=== PATIENT | female | born 1965 | race Caucasian/White ===

== ENCOUNTER 2024-11-22 14:03 | Outpatient (AMB) | payer BC, MEDICAID, SELFPAY ==
--- NOTE | 2024-11-22 14:07 | A.OFFVIS_ITS ---
Vital Signs 11/22/24 14:13 Height 5 ft 2 in Weight 120 lb BMI 21.9 BP 146/69 H Blood Pressure Location Lt brachial Position Sitting Pulse 76 Pulse Source Pulse Oximeter Pulse Oximetry (%) 100 Oxygen Delivery Method Room Air Intake Visit Reasons: LUMBAR SPONDYLOSIS Intake Note: Pain today 06/21 Distribution Sales Manager Required: No Accompanied by: Other Relationship Allergies No Known Allergies Allergy (Verified 11/22/24 14:15) HPI Comments Details: The patient is a 59-year-old female presenting with chronic low back pain. The pain has persisted for over three months, worsening with walking or standing, and may have been triggered by a yoga-related incident. She has been under the care of Dr. Duran, receiving a piriformis injection and engaging in physical therapy at [facility] in [place] for lower back and and right hip. The pain extends to the right lateral leg, occasionally causing nerve pain and muscle spasms, and is somewhat alleviated by biking and rollerblading, though walking remains problematic. A lumbar x-ray indicated mild arthritis in the facet joints, with tenderness noted at L4-L5 and the sacroiliac joints. The patient denies bowel or bladder dysfunction and uses ibuprofen BID-TID prn daily for pain relief. She has a history of fibromyalgia-like symptoms following a period of significant stress and family loss, leading to muscle spasms and back tightness. Currently, she is considering transitioning from cyclobenzaprine to tizanidine to better manage her symptoms. Patient is currently receiving counseling for depression and reports Wellbutrin and duloxetine have been partially helpful. - Onset: Over three months ago, possibly related to yoga. - Quality: Chronic, with nerve pain, pinching, cramping, crushing, dull, sore, hurting, aching, heavy, spasming, tiring. - Location: Low back, radiating to the hip and lateral leg. - Exacerbating factors: Walking, standing, increased pain after a lot of activity - Relieving factors: Biking, rollerblading. - Interference: Affects walking and standing activities. - Pain (1-10): With activities 7/10, average 5/10, early am upon waking up 1/10 - Affect: Pain impacts daily activities and causes frustration due to activity limitations. - Analgesia: Currently using ibuprofen three times daily; considering tizanidine for muscle relaxation. - Adverse Effects: Potential drowsiness from tizanidine, advised to monitor blood pressure. - Activities of Daily Living: Pain affects walking and standing; patient remains active with biking and rollerblading. - Aberrant Drug Related Behaviors: None reported. 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 - Neurological: Denies numbness or tingling down the legs. - Genitourinary: Denies bowel or bladder dysfunction, weakness, foot drop, or saddle anesthesia. All systems reviewed & are unremarkable except as noted in HPI and below Physical Exam Vital Signs: Last Vital Signs Pulse 76 11/22/24 14:13 BP 146/69 H 11/22/24 14:13 Pulse Ox 100 11/22/24 14:13 Oxygen Delivery Method Room Air 11/22/24 14:13 BMI result Body Mass Index 21.9 General: Appears afebrile. Alert and oriented. Mood and affect appropriate. Follows and participates in conversation appropriately. Respiratory effort is unlabored. No cough. Able to transition from sit to stand unassisted. Ambulates with bilaterally normal heel strike and toe off. General: Yes no CVA tenderness Back/Spine/Pelvis Other: Patient is able to walk and stand on heels and tip toes with no difficulties demonstrating good motor tone. No limping. Can flex forward to 80-85 degrees and extend to 5-10 degrees before experiencing lumbar pain. Demonstrates 5/5 strength of quadriceps bilaterally as well as flexion/dorsiflexion of bilateral feet against resistance. 2+ pedal pulses bilaterally. Straight leg rise with dorsiflexion negative bilaterally. +2 patellar and achilles reflexes ihsan aterally. Facet loading test positive bilaterally. Myrtle sign, Cortez?s, Gaenslen, Pelvic compression and Stinchfield tests are positive on the right>left. Mild TTP to right piriformis muscle. Mild groin pain with right I/E hip rotations. Valsalva maneuver is negative. Mild multiple widespread TTPs 16/16 bilaterally, including upper and lower extremities.?? Back: no CVA tenderness Cervical Spine: cervical ROM normal, cervical muscular tenderness and No Cervical spine tenderness Thoracic/Lumbar Spine: thoracic and lumbar spine normal to inspection, No Thoracic/lumbar spine scar(s), Lasegue's sign negative, straight leg raise negative bilaterally, pain with thoraco-lumbar ROM, paraspinal muscle tenderness on the right greater than left, No thoracic spinal tenderness and lumbar spinal tenderness at L4 and at L5 Pelvis: buttock tenderness on the right Sacroiliac joints: bilaterally tender to palpation Results Reviewed Results Reviewed: Ordering Physician: DO Avery Skaggs Date of Service: 10/20/24 Procedure(s): XR lumbar spine 2-3V Reason for Exam: right sided sciatica HISTORY: right sided sciatica -written- TECHNIQUE: 3 views of the lumbar spine were acquired. COMPARISON: None. FINDINGS: Vertebrae: There are 5 non rib-bearing vertebral bodies. There is normal mineralization, alignment and stature with no evidence of a fracture. Disc Spaces: Disc space height is preserved. Facet Joints: Mild sclerosis of the lower lumbar facet joints. Paravertebral Tissues: No acute abnormality. IMPRESSION: Mild lower lumbar facet arthrosis. Assessment & Plan Assessment & Plan (1) Fibromyalgia: Code(s): M79.7 - Fibromyalgia Category: Medical (2) Muscle spasm of back: Code(s): M62.830 - Muscle spasm of back Category: Medical (3) Lumbar spondylosis: Code(s): M47.816 - Spondylosis without myelopathy or radiculopathy, lumbar region Category: Medical (4) Sacroiliac joint pain: Code(s): M53.3 - Sacrococcygeal disorders, not elsewhere classified Category: Medical Plan The patient will maintain physical therapy to manage chronic low back pain and sacroiliac joint dysfunction. Pending insurance approval, a therapeutic steroid injection in the right sacroiliac joint with local and fluoroscopy is planned to achieve extended pain relief. Expectations, risks and benefits were reviewed. Patient is aware she will be contacted to schedule this procedure. The patient is advised to switch from cyclobenzaprine to tizanidine, starting with a low dose to evaluate its impact on fibromyalgia symptoms. Side effects and precautions were discussed with patient. She is encouraged to continue low-impact activities while minimizing activities that increase pain. All questions and concerns have been answered and patient agreed with the plan. Follow-up to assess the treatment's effectiveness and make necessary adjustments and sooner as needed. Patient was informed and verbally consented to the use of an ambient scribe for clinic note documentation during this visit. Medications: New tizanidine 4 mg PO BID PRN 30 tabs 0RF muscle spasticity M62.830 - Muscle spasm of back, M79.7 - Fibromyalgia Coding Level of Care Code New Pt Level 4 (31355) Diagnoses Fibromyalgia M79.7 Muscle spasm of back M62.830 Lumbar spondylosis M47.816 Sacroiliac joint pain M53.3
[2024-11-22 14:13] VITALS: BP 146/69; PULSE 76; O2SAT 100; BMI 21.9
--- OUTSIDE RECORDS SUMMARY | 2024-11-22 15:26 | XMS_ITS | Clinical Summary ---
Author Organization [facility] Address [address] [place] [address] Care Team Providers Care Washer Operator Name Role Phone Pcp, No Primary Care Provider Unavailabl e Allergies No known active allergies Medications moxifloxacin (VIGAMOX) 0.5 % ophthalmic solutionIndicat ions:Encounter for screening for COVID-19 Administer 1 drop to the right eye 3 (three) times a day. 3 mL 3 Active amoxicillin-cla vulanate (AUGMENTIN) 875-125 MG per tabletIndicatio ns:Encounter for screening for COVID-19 Take 1 tablet by mouth 2 (two) times a day. 20 tablet 3 Active Active Problems No known active problems Social History Tobacco Use Types Packs/Day Years Used Date Smoking Tobacco: Never Assessed Comments Unknown Sex and Gender Information Value Date Recorded Sex Assigned at Female 05/17/2022 11:21 AM EST Legal Sex Female 11:19 AM EST Gender Identity Female 05/17/2022 11:21 AM EST Sexual Orientation Heterosexual (straight) 05/17 11:21 AM EST Last Filed Vital Signs Vital Sign Reading Time Taken Comments Blood Pressure 164/99 05/17/2022 11:59 AM EST Pulse 81 05/17/2022 11:59 AM EST Temperature 36.7 C (98 F) 05/17/2022 11:59 AM EST Respiratory Rate 16 05/17/2022 11:59 AM EST Oxygen Saturation 99% 05/17/2022 11:59 AM EST Inhaled Oxygen Concentration - - Weight 54.4 kg (120 lb) 05/17/2022 11:59 AM EST Height 157.5 cm (5' 2 ) 05/17/2022 11:59 AM EST Body Mass Index 21.95 05/17/2022 11:59 AM EST Plan of Treatment Health Maintenance Due Date Last Done Comments Hepatitis C Virus Screening 1967 HIV Screening 02/27/1980 DTaP/Tdap/Td Vaccines (1 - Tdap) 1986 Hepatitis B Vaccines (1 of 3 - 19+ 3-dose series) 02/09 Pap Smear (Ages 21-65) 02/27/1988 Mammogram 2007 Colonoscopy 02/27/2012 Pneumococcal Vaccines 50+ (1 of 1 - PCV) 2017 Zoster (Shingles) Vaccine (1 of 2) 2017 COVID-19 Vaccine (1 - 2023- season) 2024 Influenza Vaccine 12/10/2024 Care Teams Washer Operator Relationship Specialty Start Date End Date Pcp, [address] [place] [address] PCP - General 05/17/22
--- OUTSIDE RECORDS SUMMARY | 2024-11-22 15:26 | XMS_ITS | Patient Health Record ---
Author Organization [facility] [place] [address] Care Team Providers Care Insurance Agency Manager Name Role Phone Out of Area, Provider Primary Care Provider Unav ailable Yaz Gordon Unavailable [phone] Results Component Value Reference Range Notes Surgical Pathology Reviewed date:01/05/2024 02:40:38 PM Interpretation: Performing Lab: Notes/Report: Final Diagnosis: Gallbladder, Cholecystectomy: Chronic cholecystitis and cholelithiasis. Gross Description: Received in formalin labeled Mani Bonilla and designated gallbladder consis ts of an intact, grijalva-brown gallbladder specimen that measures 7.3 cm in l ength x 1.6 cm in diameter. The serosal aspect is grijalva-brown and withou t perforation. It is opened to reveal multiple uniform yellow cholesterol calculi that range in measurement from 0.2 to 0.3 cm in greatest dimension. The mucosal is dark green and velvety and without any mucosal based lesion s. The wall measures 0.4 cm in greatest dimension. Packing Clerk secti ons are submitted in one cassette. [RP] [id number] CPT Codes: 94136a7 Source: Surgical Histology Signed out by: Otto Condon MD - 01/05/2024 Site Note: COWEN: Technical [facility] by [facility] - A [facility], [address] [place] [address]. [address] [facility], [place] [id number], , Katy De La Torre MD, Braille And Talking Books Clerk. Specimen Grossing and Professional services are provided [facility], [address] [place] [address], [id number], , Sony Mott DO, Braille And Talking Books Clerk. Reason For Referral No Information Encounters Encounter Location Date Provider Diagnosis [facility] [address] [place] [address] 01/19/2024 Yaz Gordon Postprocedural state Z98.890 [facility] [address] [place] [address] 01/06/2024 Yaz Gordon Assessments Encounter Date Diagnosis (ICD Code) Assessment Notes Treatment Notes Treatment Clinical Notes Section Notes 01/19/2024 Postprocedural state (ICD-10 - Z98.890) 58-year-old female status post laparoscopic cholecystectomy for chronic cholecystitis on 4Doing well after surgeryPatient already tolerating a little bit of fatty foods, advised her that unless she has any diarrhea or abdominal pain with the fatty foods that she is welcome to keep eating themBack to workBenign pathologyFollow-up as needed Plan Of Treatment No Information Insurance Providers Payer Name Payer Address Payer Phone Subscriber Number Group Number Insured Name Patient Relationship to Insured Coverage Start Date Coverage End Date PATRICIA HOLM [address] [place] [address] [id number] MANI BONILLA Self - patient is the insured
== END 2024-11-22 14:42 | disposition home or self-care (01) ==
LOC: HO.PMC 14:04
PROVIDERS: Visit Provider Nurse Practitioner Family
DX: M79.7 Fibromyalgia (principal); M62.830 Muscle spasm of back; M47.816 Spondylosis without myelopathy or radiculopathy, lumbar region; M53.3 Sacrococcygeal disorders, not elsewhere classified
CPT/HCPCS: 99204

== ENCOUNTER 2024-12-03 14:42 | Outpatient (REF) | payer BC, MEDICAID, SELFPAY ==
--- OUTSIDE RECORDS SUMMARY | 2024-12-03 14:46 | XMS_ITS | Clinical Summary ---
Author Organization [facility] Address [address] [place] [address] Care Team Providers Care Quality Review Specialist Name Role Phone Pcp, No Primary Care [...] season) 2024 Influenza Vaccine 12/10/2024 Care Teams Quality Review Specialist Relationship Specialty Start Date End Date Pcp, [address] [place] [address] PCP - General 05/17/22
--- OUTSIDE RECORDS SUMMARY | 2024-12-03 14:46 | XMS_ITS | Clinical Summary ---
Author Organization [facility] Address [address] [place] [address] Care Team Providers Care Body Corporate Manager Name Role Phone Renea Hatch CNM Primary Care Provider Unav ailable Social History Tobacco Use Types Packs/Day Years Used Date Smoking Tobacco: Never Assessed Comments Unknown Sex and Gender Information Value Date Recorded Sex Assigned at Not on file Legal Sex Female 9:24 EDT Gender Identity Not on file Sexual Orientation Not on file Plan of Treatment Health Maintenance Due Date Last Done Comments Hepatitis C Screen 1967 Hepatitis B Vaccine (1 of 3 - 19+ 3-dose series) 02/26 COVID-19 Vaccine ( season) 2024 Care Teams Body Corporate Manager Relationship Specialty Start Date End Date Renea Hatch CNM [address] [place] [address] PCP - General 09/30/13
--- OUTSIDE RECORDS SUMMARY | 2024-12-03 14:46 | XMS_ITS | Clinical Summary ---
Author Organization [facility] Address [address] [facility] [place] [address] Care Team Providers Care Gift Shop Clerk Name Role Phone Unavailable Primary Care Provider Unavailabl e Family History Medical History Relation Comments Ovarian Cancer Maternal Aunt no genetic testi ng Ovarian Cancer Maternal Cousin 1 ? genetic test ing Other Maternal Cousin 2 CHEK2+ Prostate Cancer Maternal Uncle Breast Cancer Mother Relation Status Comments Father Maternal Aunt Maternal Cousin 1 Alive Maternal Cousin 2 Alive Maternal Grandfather Maternal Grandmother Maternal Uncle Alive Mother Paternal Grandfather Paternal Grandmother Sister Alive Social History Tobacco Use Types Packs/Day Years Used Date Smoking Tobacco: Never Assessed Comments Unknown Sex and Gender Information Value Date Recorded Sex Assigned at Not on file Legal Sex Female 6:52 AM EDT Gender Identity Not on file Sexual Orientation Not on file Plan of Treatment Health Maintenance Due Date Last Done Comments CT Colonography 1967 Colonoscopy 1967 Colorectal Cancer Screening 1967 FIT DNA 1967 FIT 1967 Sigmoidoscopy (10 year) with FIT yearly 1967 Sigmoidoscopy 1967 HIV screen 1985 Hepatitis C Screening 1985 Hepatitis B vaccine (0-59 yrs) and Risk (1) 1986 Tetanus/Diphtheria/Pertussis Vaccines (1 - Tdap) 02/26 HPV test 1997 PAP Smear 1997 Breast Cancer Share Decision Needed 2007 Breast Cancer screening 2007 Pneumoccocal Vaccine: 50+ (1 of 1 - PCV) 2017 Zoster vaccine (1 of 2) 2017 Advance Directive 2022 Covid-19 Vaccine (1 - 2023-25 season) 2024 Influenza (Flu) vaccine (1 o f 1 - Influenza standard series) 01/10/2025 Insurance [place]ID [place]
--- OUTSIDE RECORDS SUMMARY | 2024-12-03 14:46 | XMS_ITS | Patient Health Record ---
Author Organization [facility] [place] [address] Care Team Providers Care Slps Name Role Phone Out of Area, Provider Primary Care Provider Unav ailable Yaz Gordon Unavailable [phone] Results Component Value Reference Range Notes Surgical [...] wall measures 0.4 cm in greatest dimension. Scrum Project Manager secti ons are submitted in one cassette. [RP] [id number] CPT Codes: 99639z7 Source: Surgical Histology Signed out by: Otto Condon MD - 01/05/2024 Site Note: BROKEN BOW: Technical Preparation [facility]formed by [facility] - A [facility], [address] [place] [address]. Suite [facility], [place] [id number], , Katy De La Torre MD, Surgical Supply Assistant. Specimen Grossing and Professional services are provided [facility], [address] [place] [address], [id number], , Sony Mott DO, Surgical Supply Assistant. Reason For Referral No Information Encounters Encounter Location Date Provider Diagnosis [facility] [address] [place] [address] 01/19/2024 Yaz Gordon Postprocedural state Z98.890 [facility] [address] [place] [address] 01/06/2024 Yaz Gordon Assessments Encounter Date Diagnosis [...] End Date PATRICIA HOLM [address] [place] [address] [id number] MANI BONILLA Self - patient is the insured
== END 2024-12-03 14:43 | disposition home or self-care (01) ==
LOC: CF 14:42
DX: Z13.89 Encounter for screening for other disorder (principal)

== ENCOUNTER 2024-12-23 07:32 | Outpatient (REF) | payer BC, MEDICAID, SELFPAY ==
--- NOTE | ~2024-12-23 | FL_ITS ---
EXAMINATION: FL GUIDANCE ONLY HISTORY: M53.3 - Sacrococcygeal disorders, not elsewhere classified COMPARISON: None available. TECHNIQUE: Fluoroscopy time: 0.1 minutes. Cumulative Dose: 1.57 mGy. DAP: 0.184 mGym2 Images: 3. FINDINGS: Fluoroscopic spot films of the pelvis demonstrate a needle in the region of the right sacroiliac joint. FL/FL guidance in treatment room IMPRESSION: Fluoroscopy during procedure. Please see procedure report for additional information. Electronically signed by: Jaguar Rashid MD 12/23/2024 01:44 PM EDT
--- OUTSIDE RECORDS SUMMARY | 2024-12-23 07:34 | XMS_ITS | Patient Health Record ---
Author Organization [facility] Address [place] [address] Care Team Providers Care Wedding Cake Designer Name Role Phone Out of Area, Provider Primary Care Provider Unav ailable Yaz Gordon Unavailable [phone] Results Component Value Reference Range Notes Surgical [...] wall measures 0.4 cm in greatest dimension. User Experience Analyst secti ons are submitted in one cassette. [RP] [id number] CPT Codes: 90589j6 Source: Surgical Histology Signed out by: Otto Condon MD - 01/05/2024 Site Note: SEKIU: Technical Preparation Performed by [facility] - A [facility], [address] [place] [address]. Suite [facility], [place] [id number], , Katy De La Torre MD, Paint Stripper. Specimen Grossing and Professional services are provided [facility], [address] [place] [address], [id number], , Sony Mott DO, Paint Stripper. Reason For Referral No Information Encounters Encounter Location Date Provider Diagnosis [facility] [address] [place] [address] [place] [address] 01/19/2024 Yaz Gordon Postprocedural state Z98.890 [facility] - [address] [place] [address] 01/06/2024 Yaz Gordon Assessments Encounter Date Diagnosis [...] Insured Coverage Start Date Coverage End Date PATRICAI HOLM [address] [place] [address] [id number] MANI BONILLA Self - patient is the insured
--- OUTSIDE RECORDS SUMMARY | 2024-12-23 07:34 | XMS_ITS | Clinical Summary ---
Author Organization [facility] Address [address] [place] [address] Care Team Providers Care Rail Filler Name Role Phone Pcp, No Primary Care [...] season) 2024 Influenza Vaccine 12/10/2024 Care Teams Rail Filler Relationship Specialty Start Date End Date Pcp, [address] [place] [address] PCP - General 05/17/22
--- OUTSIDE RECORDS SUMMARY | 2024-12-23 07:34 | XMS_ITS | Clinical Summary ---
Author Organization [facility] Address [address] [place] [address] Care Team Providers Care Process Treater Name Role Phone Renea Hatch CNM Primary Care Provider Unav ailable Encounters Date Type Department Care Team Description 12/22/2024 Lab Requisition [facility] Pathology & Laboratory Medicine - [facility] [address] [place] [address] Outr Resulting Lab, Provider from Last 3 Months Social History Tobacco Use Types Packs/Day Years [...] COVID-19 Vaccine ( season) 2024 Care Teams Process Treater Relationship Specialty Start Date End Date Renea Hatch CNM [address] [place] [phone] PCP - General 09/30/13
--- OUTSIDE RECORDS SUMMARY | 2024-12-23 07:34 | XMS_ITS | Clinical Summary ---
Author Organization [facility] Address [address] [facility] [place] [place] [address] Care Team Providers Care Hands Assembler Name Role Phone Unavailable Primary Care Provider [...] Advance Directive 2022 Covid-19 Vaccine (1 - season) 2024 Influenza (Flu) vaccine (1 o f 1 - Influenza standard series) 01/10/2025 Insurance MEDICAID [place]
== END 2024-12-23 07:33 | disposition home or self-care (01) ==
LOC: CF 07:32
PROVIDERS: Visit Provider Internal Medicine
DX: M53.3 Sacrococcygeal disorders, not elsewhere classified (principal)
CPT/HCPCS: 27096; J2003; J2795; J3301

== ENCOUNTER 2024-12-23 11:23 | Outpatient (AMB) | payer BC, MEDICAID, SELFPAY ==
[2024-12-23 11:25] VITALS: BP 100/83; PULSE 83; RESP 16; O2SAT 100; BMI 21.9
--- NOTE | 2024-12-23 11:25 | A.OFFVIS_ITS ---
Vital Signs 12/23/24 11:25 12/23/24 12:09 Height 5 ft 2 in Weight 120 lb BMI 21.9 BP 100/83 167/75 H Blood Pressure Location Lt brachial Lt brachial Position Sitting Sitting Respiration 16 16 Pulse 83 80 Pulse Source Pulse Oximeter Pulse Oximeter Pulse Oximetry (%) 100 100 Oxygen Delivery Method Room Air Room Air Intake Visit Reasons: right theraputic SIJ injection Allergies No Known Allergies Allergy (Verified 11/22/24 14:15) HPI HPI right theraputic SIJ injection: Details: Patient presents for scheduled procedure. Denies any recent cough, cold, infection, fever or other significant changes in medical history since last office visit. 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 Immediately prior to starting the procedure, a time-out safety check was conducted. The patient's identification, procedure name, procedure site, and procedure laterality were confirmed with the patient. ? Patient was placed prone on the fluoroscopy table and the lumbosacral area was prepped using ChloraPrep and draped with sterile draped in standard fashion. The C-arm was rotated in a contralateral oblique fashion until the medial border of the iliac crest no longer foreshadowed the posterior sacroiliac joint line. The skin and subcutaneous tissue was anesthetized using 1 mL of 0.75% plain lidocaine with 1.5-inch 25-gauge needle in the middle region of the joint line.? A 3.5-inch 22-gauge spinal needle with small bend on the tip was slowly advanced towards the joint line, coaxial to the x-ray beam. Once bony content was obtained, the needle was easily slid into the intra-articular space.? Intra- articular needle position was confirmed using lateral fluoroscopy.? A total volume of 2.5mL of solution containing 40 mg trimcinilone and rest 0.5% of ropivacaine was injected intra-articularly. The stylet was reinserted and needle was removed. The patient tolerated the procedure well. Patient denied any lower extremity weakness or numbness. Patient was observed for 30 min and was discharged after fulfilling the standard discharge criteria. Coding Procedure code (CPT) selection complete Assessment & Plan Assessment & Plan (1) Sacroiliac joint pain: Code(s): M53.3 - Sacrococcygeal disorders, not elsewhere classified Category: Medical Plan Patient is status post right therapeutic SI joint injection. Patient tolerated procedure well and was discharged home in stable condition with discharge instructions. All questions were answered. We will follow-up via telephone or in clinic to assess response to therapy. A follow-up appointment was made during today's visit. Orders: Orders FL guidance in treatment room Today M53.3 - Sacrococcygeal disorders, not elsewhere classified AMB Joint Injection/Aspiration Today M53.3 - Sacrococcygeal disorders, not elsewhere classified Coding Level of Care Code Procedure Only Diagnoses Sacroiliac joint pain M53.3
[2024-12-23 12:09] VITALS: BP 167/75; PULSE 80; RESP 16; O2SAT 100
== END 2024-12-23 12:10 | disposition home or self-care (01) ==
LOC: HO.PMCPRC 11:23
PROVIDERS: Visit Provider Internal Medicine
DX: M53.3 Sacrococcygeal disorders, not elsewhere classified (principal)
CPT/HCPCS: 27096

== ENCOUNTER 2025-01-06 10:17 | Outpatient (AMB) | payer BC, MEDICAID, SELFPAY ==
--- NOTE | 2025-01-06 10:19 | MHC.OFFVIS ---
Vital Signs 01/06/25 10:23 Height 5 ft 2 in Weight 122 lb BMI 22.3 BP 192/83 H Blood Pressure Location Lt brachial Position Sitting Pulse 80 Pulse Source Pulse Oximeter Pulse Oximetry (%) 97 Oxygen Delivery Method Room Air Intake Visit Reasons: s/p right theraputic SIJ inj Intake Note: Pain today 07/19 Disability Insurance Hearing Officer Required: No Accompanied by: Spouse Allergies No Known Allergies Allergy (Verified 01/06/25 10:23) HPI Comments Details: The patient is a 59-year-old female presenting with chronic pain and fibromyalgia symptoms. She reports a history of chronic pain that began years ago following an injury, which has now resurfaced and is associated with anxiety. The pain is primarily located in the back and moves around, with a history of fibromyalgia that had previously resolved for six to seven years. The patient underwent a right sacroiliac joint injection with steroids on December 23, 2024, which provided therapeutic relief. However, she continues to experience pain in the right buttock, especially during exercise, with a pain level reaching up to 5-7/10. She describes the pain as spasms in the middle of the buttock, which improve with rest. The patient has a history of mild disc degeneration and mild arthritis in the lower back, as confirmed by MRI imaging. She reports no spinal stenosis and has been informed that the discs are only slightly degenerated, which is considered normal for her age. The patient has been diagnosed with anxiety, which she associates with family-related stressors rather than public or situational anxiety. She has been managing her anxiety with counseling and has started on a low dose of duloxetine (Cymbalta) for fibromyalgia and anxiety management. She has a history of using gabapentin in the past for similar symptoms. - Onset: Chronic pain following an injury years ago, recently resurfaced. - Quality: Described as spasms, primarily in the middle of the back and right buttock. - Location: Back, with radiation to the right buttock. - Exacerbating factors: Exercise increases pain, especially in the right buttock. - Relieving factors: Rest alleviates the pain. - Interference: Pain limits walking distance and physical activity. - Affect: Anxiety related to family stressors impacts mood. - Analgesia: Current pain level is 2 out of 10 at rest, 5-7/10 with activities, with a goal to manage pain effectively. - Adverse Effects: No adverse effects from current medications reported. - Activities of Daily Living: Pain limits walking and physical activity. - Aberrant Drug Related Behaviors: No aberrant behaviors reported. Past Procedures: 12/23/24:Right therapeutic SI joint injection-70% pain relief, ongoing PRIOR: The patient is a 59-year-old female presenting with chronic low back pain. The pain has persisted for over three months, worsening with walking or standing, and may have been triggered by a yoga-related incident. She has been under the care of Dr. Duran, receiving a piriformis injection and engaging in physical therapy at [facility] in [place] for lower back and and right hip. The pain extends to the right lateral leg, occasionally causing nerve pain and muscle spasms, and is somewhat alleviated by biking and rollerblading, though walking remains problematic. A lumbar x-ray indicated mild arthritis in the facet joints, with tenderness noted at L4-L5 and the sacroiliac joints. The patient denies bowel or bladder dysfunction and uses ibuprofen BID-TID prn daily for pain relief. She has a history of fibromyalgia-like symptoms following a period of significant stress and family loss, leading to muscle spasms and back tightness. Currently, she is considering transitioning from cyclobenzaprine to tizanidine to better manage her symptoms. Patient is currently receiving counseling for depression and reports Wellbutrin and duloxetine have been partially helpful. - Onset: Over three months ago, possibly related to yoga. - Quality: Chronic, with nerve pain, pinching, cramping, crushing, dull, sore, hurting, aching, heavy, spasming, tiring. - Location: Low back, radiating to the hip and lateral leg. - Exacerbating factors: Walking, standing, increased pain after a lot of activity - Relieving factors: Biking, rollerblading. - Interference: Affects walking and standing activities. - Pain (1-10): With activities 7/10, average 5/10, early am upon waking up 1/10 - Affect: Pain impacts daily activities and causes frustration due to activity limitations. - Analgesia: Currently using ibuprofen three times daily; considering tizanidine for muscle relaxation. - Adverse Effects: Potential drowsiness from tizanidine, advised to monitor blood pressure. - Activities of Daily Living: Pain affects walking and standing; patient remains active with biking and rollerblading. - Aberrant Drug Related Behaviors: None reported. [facility] Medical History Depression Fibromyalgia Hypersensitivity disorder Vitamin D deficiency Anxiety Surgical History History of section Hx of cholecystectomy (~12/2023) Social History Alcohol intake: current Alcohol intake frequency: a few times a month Patient Tobacco Use Status: Never used Tobacco Current occupational status: employed Current occupation: [employer] Review of Systems Const Details: - Musculoskeletal: Reports chronic pain in the back and right buttock, exacerbated by exercise. - Neurological: Denies any new neurological symptoms. - Psychological: Reports anxiety related to family stressors, denies situational anxiety. All systems reviewed & are unremarkable except as noted in HPI and below Physical Exam Vital Signs: Last Vital Signs Pulse 80 01/06/25 10:23 BP 192/83 H 01/06/25 10:23 Pulse Ox 97 01/06/25 10:23 Oxygen Delivery Method Room Air 01/06/25 10:23 BMI result Body Mass Index 22.3 General: Appears afebrile. Alert and oriented. Mood and affect appropriate. Follows and participates in conversation appropriately. Respiratory effort is unlabored. No cough. Able to transition from sit to stand unassisted. Ambulates with bilaterally normal heel strike and toe off. General: Yes no CVA tenderness Back/Spine/Pelvis Other: Patient is able to walk and stand on heels and tip toes with no difficulties demonstrating good motor tone. No limping. Lumbar flexion and extension reproduces mild discomfort, denies pain. Demonstrates 5/5 strength of quadriceps bilaterally as well as flexion/dorsiflexion of bilateral feet against resistance. 2+ pedal pulses bilaterally. Straight leg rise with dorsiflexion negative bilaterally. +2 patellar and achilles reflexes bilaterally. Facet loading test positive bilaterally. Moderate TTP to right piriformis muscle. No groin pain with right I/E hip rotations. Valsalva maneuver is negative. Mild multiple widespread TTPs 16/16 bilaterally, including upper and lower extremities.?? Back: no CVA tenderness Cervical Spine: cervical ROM normal, cervical muscular tenderness and No Cervical spine tenderness Thoracic/Lumbar Spine: thoracic and lumbar spine normal to inspection, No Thoracic/lumbar spine scar(s), Lasegue's sign negative, straight leg raise negative bilaterally, pain with thoraco-lumbar ROM, paraspinal muscle tenderness on the right greater than left, No thoracic spinal tenderness and lumbar spinal tenderness at L4 and at L5 Pelvis: buttock tenderness on the right Sacroiliac joints: bilaterally tender to palpation (mild) Results Reviewed Results Reviewed: Ordering Physician: DO Avery Skaggs Date of Service: 10/20/24 Procedure(s): XR lumbar spine 2-3V Reason for Exam: right sided sciatica HISTORY: right sided sciatica -written- TECHNIQUE: 3 views of the lumbar spine were acquired. COMPARISON: None. FINDINGS: Vertebrae: There are 5 non rib-bearing vertebral bodies. There is normal mineralization, alignment and stature with no evidence of a fracture. Disc Spaces: Disc space height is preserved. Facet Joints: Mild sclerosis of the lower lumbar facet joints. Paravertebral Tissues: No acute abnormality. IMPRESSION: Mild lower lumbar facet arthrosis. 12/23/24 Lumbar spine MRI w/o IV contrast Assessment & Plan Assessment & Plan (1) Muscle spasm of back: Code(s): M62.830 - Muscle spasm of back Category: Medical (2) Lumbar spondylosis: Code(s): M47.816 - Spondylosis without myelopathy or radiculopathy, lumbar region Category: Medical (3) Sacroiliac joint pain: Code(s): M53.3 - Sacrococcygeal disorders, not elsewhere classified Category: Medical (4) Fibromyalgia: Code(s): M79.7 - Fibromyalgia Category: Medical (5) Piriformis syndrome of right side: Code(s): G57.01 - Lesion of sciatic nerve, right lower limb Category: Medical Plan The patient will be considered for a piriformis muscle injection to address the chronic pain, particularly in the right buttock area. She reports moderate improvement of right sided low back pain s/p recent SI joint injection on the right but continues with mid right buttock pain. Schedule Right therapeutic Piriformis muscle injection with local and ultrasound guidance. Expectations, risks and benefits were reviewed. Patient is aware she will be contacted to schedule this procedure. The patient is currently on a low dose of duloxetine (Cymbalta) for fibromyalgia management, with plans to increase the dosage if tolerated. She is encouraged to maintain sleep hygiene and stress management, continue daily physical activities as tolereated, adequate hydration and a balanced diet to manage symptoms. Cognitive behavioral therapy is recommended to help manage chronic pain and associated anxiety. All questions and concerns have been answered and patient agreed with the treatment plan. Follow up after injection and sooner as needed. Patient was informed and verbally consented to the use of an ambient scribe for clinic note documentation during this visit. Coding Level of Care Code Est Pt Level 4 (08135) Complex EM visit Add On G2211 Diagnoses Muscle spasm of back M62.830 Lumbar spondylosis M47.816 Sacroiliac joint pain M53.3 Fibromyalgia M79.7 Piriformis syndrome of right side G57.01
[2025-01-06 10:23] VITALS: BP 192/83; PULSE 80; O2SAT 97; BMI 22.3
--- OUTSIDE RECORDS SUMMARY | 2025-01-06 11:35 | XMS_ITS | Encounter Summary ---
Author Organization [facility] Address [address] [place] [address] Care Team Providers Care Tetryl Dissolver Operator Name Role Phone Mamie Renea El [facility] Primary Care Provider Unav ailable Encounter Details Date Type Department Care Team (Late st Contact Info) Description 12/22/2024 Lab Requisition [facility] Pathology & Laboratory Medicine - [facility] [address], [place] [id number] Outr Resulting Lab, Provider Social History Tobacco Use Types Packs/Day Years Used Date Smoking Tobacco: Never Assessed Comments Unknown Sex and Gender Information Value Date Recorded Sex Assigned at Not on file Legal Sex Female 9:24 EDT Gender Identity Not on file Sexual Orientation Not on file documented as of this encounter Plan of Treatment Not on file documented as of this encounter Procedures Procedure Name Priority Date/Time Associated Diagnosis Comments LYME AB Routine 12/22/2024 13:59 EDT documented in this encounter Results * LYME AB (12/22/2024 13:59 EDT) Lyme Ab Negative Negative 12/23/2024 10:11 EDT [facility] Blood VENOUS BLOOD / Unknown 12/22/2024 13:59 EDT 12/22/2024 20:57 EDT us Provider Outr Resulting Lab IMMUNOLOGY AND SEROL OGY ORDERABLES Final Result [facility] [address] [place] [address], [place] [id number] documented in this encounter Visit Diagnoses Not on filedocumented in this encounter Care Teams Tetryl Dissolver Operator Relationship Specialty Start Date End Date Renea Hatch CNM [address] [place] [phone] PCP - General 09/30/13 documented as of this encounter
--- OUTSIDE RECORDS SUMMARY | 2025-01-06 11:35 | XMS_ITS | Clinical Summary ---
Author Organization [facility] Address [address] [place] [address] Care Team Providers Care Candy Feeder Name Role Phone Renea Hatch El [facility] Primary Care Provider Unav ailable Encounters Date Type Department Care Team Description 12/22/2024 Lab Requisition [facility] Pathology & Laboratory Medicine - [facility] [address], [place] [id number] Outr Resulting Lab, Provider from Last 3 [...] series) 02/26 COVID-19 Vaccine ( season) 2024 Procedures Procedure Name Priority Date/Time Associated Diagnosis Comments LYME AB Routine 12/22/2024 13:59 EDT from Last 3 Months Results * LYME AB (12/22/2024 13:59 EDT) Lyme Ab Negative Negative 12/23/2024 10:11 EDT [facility] Blood VENOUS BLOOD / Unknown 12/22/2024 13:59 EDT 12/22/2024 20:57 EDT us Provider Outr Resulting Lab IMMUNOLOGY AND SEROL OGY ORDERABLES Final Result [facility] [address] [place] [address] from Last 3 Months Care Teams Candy Feeder Relationship Specialty Start Date End Date Renea Hatch CNM [address] [place] [phone] PCP - General 09/30/13
--- OUTSIDE RECORDS SUMMARY | 2025-01-06 11:35 | XMS_ITS | Encounter Summary ---
Author Organization [facility] Address [address] [place] [address] Care Team Providers Care Hand Cultivator Name Role Phone Renea Hatch [facility] Primary Care Provider Unav ailable Encounter Details Date Type Department Care Team (Late st Contact Info) Description 08/23/2019 Lab Requisition [facility] Pathology & Laboratory Medicine - [facility] [address] [place] [address] Flakita Landin MD [address] [place] [id number] Encounter for other general examination Social History Tobacco Use Types Packs/Day Years [...] Procedure Name Priority Date/Time Associated Diagnosis Comments COVID-19 TESTING Today 08/23/2019 10:5 2 EDT Encounter for other general examination documented in this encounter Results * COVID-19 TESTING (08/23/2019 10:52 EDT) COVID-19 Result Negative 0 8:22 EDT [facility] Comment:Assayed by [facility], [place], [place] Swab ENTIRE NASOPHARYNX / Unknown 08/23/2019 10:52 EDT 08/23/2019 21:09 EDT us Flakita Landin MD MICROBIOLOGY - GENERAL ORD ERABLES Final Result [facility] [address] [place] [address] documented in this encounter Visit Diagnoses Diagnosis Encounter for other general examination documented in this encounter Care Teams Hand Cultivator Relationship Specialty Start Date End Date Renea Hatch CNM [address] [place] [phone] PCP - General 09/30/13 documented as of this encounter
--- OUTSIDE RECORDS SUMMARY | 2025-01-06 11:35 | XMS_ITS | Encounter Summary ---
Author Organization [facility] Address [address] [place] [address] Care Team Providers Care Solidworks Drafter Name Role Phone Renea Hatch [facility] Primary Care Provider Unav ailable Encounter Details Date Type Department Care Team (Late st Contact Info) Description 03/07/2020 Lab Requisition [facility] Pathology & Laboratory Medicine - [facility] [address] [place] [address] Outr Resulting Lab, Provider Social History Tobacco [...] Procedure Name Priority Date/Time Associated Diagnosis Comments DO NOT ORDER STANDALONE - BROAD COVID TEST Today 03/07/2020 11:15 EDT COVID-19 TESTING Routine 03/07/2020 11:1 5 EDT documented in this encounter Results * DO NOT ORDER STANDALONE - BROAD COVID TEST (03/07/2020 11:15 EDT) COVID-19 rt-PCR Result NEGATIVE Negative 03/08/2020 17:27 EDT [facility] Comment: 2019-novel Coronavirus (2019-nCoV) not detected by the qRT-PCR assay. Consider testing for other respiratory viruses or re-collecting for 2019-nCoV testing. Note: Optimum timing for peak viral levels during infections caused by 2019-nCoV have not been determined. Collection of multiple specimens from the same patient may be necessary to detect the virus. Limitations Positive results are indicative of active infection with SARS-CoV-2 but do not rule out bacterial infection or co-infection with other viruses. The agent detected may not be the definite cause of disease. In addition, detection of viral RNA may not indicate the presence of infectious virus or that SARS-CoV-2 is the causative agent for clinical symptoms. Negative results do not preclude SARS-CoV-2 infection and should not be used as the sole basis for patient management decisions. Negative results must be combined with clinical observations, patient history, and epidemiological information. False negative results may also occur if amplification inhibitors are present in the specimen or if inadequate numbers of organisms are present in the specimen. Optimum specimen types and timing for peak viral levels during infections caused by SARS-CoV-2 have not been fully determined. Collection of multiple specimens (types and time points) from the same patient may be necessary to detect the virus. The test was validated for use with upper respiratory specimens obtained via nasopharyngeal or oropharyngeal swabs in VTM, UTM, M4, M5, M6, saline, and MTM media. The performance of this test has not been established for other specimens. Specimens collected using other FDA recommended Specimen Collection Materials listed in the FDA COVID-19 [employer] communication (August 05, 2019) are processed with the caveat that they were not all validated for use with this test and the result must be interpreted in this context. Furthermore, a false negative results may occur if a specimen is improperly collected, transported or handled. If the virus mutates in the RT-PCR target region, SARS-CoV-2 may not be detected or may be detected less predictably. Inhibitors or other types of interference may produce a false negative result. An interference study evaluating the effect of common cold medications was not performed. This test is not FDA-cleared but its performance characteristics were established by our CLIA-certified, CAP-accredited, high complexity laboratory in accordance with CLIA regulations, College of [employer] (CAP) guidelines (Jul 29, 2019), and FDA guidance (Jul 10, 2019). This test is only for use under the Food and Drug Administration's Emergency Use Authorization. Swab ENTIRE NASOPHARYNX / Unknown 03/07/2020 11:15 EDT 03/07/2020 22:00 EDT us Provider Outr Resulting Lab MICROBIOLOGY - GENER AL ORDERABLES Edited Result - Final [facility] [place], [place] * COVID-19 TESTING (03/07/2020 11:15 EDT) COVID-19 rt-PCR Result NEGATIVE Negative 04/01/2020 18:28 EST [facility] Comment: 2019-novel Coronavirus (2019-nCoV) not detected by the qRT-PCR assay. Consider testing for other respiratory viruses or re-collecting for 2019-nCoV testing. Note: Optimum timing for peak viral levels during infections caused by 2019-nCoV have not been determined. Collection of multiple specimens from the same patient may be necessary to detect the virus. Limitations Positive results are indicative of active infection with SARS-CoV-2 but do not rule out bacterial infection or co-infection with other viruses. The agent detected may not be the definite cause of disease. In addition, detection of viral RNA may not indicate the presence of infectious virus or that SARS-CoV-2 is the causative agent for clinical symptoms. Negative results do not preclude SARS-CoV-2 infection and should not be used as the sole basis for patient management decisions. Negative results must be combined with clinical observations, patient history, and epidemiological information. False negative results may also occur if amplification inhibitors are present in the specimen or if inadequate numbers of organisms are present in the specimen. Optimum specimen types and timing for peak viral levels during infections caused by SARS-CoV-2 have not been fully determined. Collection of multiple specimens (types and time points) from the same patient may be necessary to detect the virus. The test was validated for use with upper respiratory specimens obtained via nasopharyngeal or oropharyngeal swabs in VTM, UTM, M4, M5, M6, saline, and MTM media. The performance of this test has not been established for other specimens. Specimens collected using other FDA recommended Specimen Collection Materials listed in the FDA COVID-19 [employer] communication (August 05, 2019) are processed with the caveat that they were not all validated for use with this test and the result must be interpreted in this context. Furthermore, a false negative results may occur if a specimen is improperly collected, transported or handled. If the virus mutates in the RT-PCR target region, SARS-CoV-2 may not be detected or may be detected less predictably. Inhibitors or other types of interference may produce a false negative result. An interference study evaluating the effect of common cold medications was not performed. This test is not FDA-cleared but its performance characteristics were established by our CLIA-certified, CAP-accredited, high complexity laboratory in accordance with CLIA regulations, College of [employer] (CAP) guidelines (Jul 29, 2019), and FDA guidance (Jul 10, 2019). This test is only for use under the Food and Drug Administration's Emergency Use Authorization. Performing Lab [facility] 04/01/2020 18:28 EST [facility] Swab 03/07/2020 11:1 5 EDT 03/07/2020 22:00 EDT us Provider Outr Resulting Lab MICROBIOLOGY - GENER AL ORDERABLES Final Result [facility] [address] [place] [address] [facility] [place], [place] documented in this encounter Visit Diagnoses Not on filedocumented in this encounter Care Teams Solidworks Drafter Relationship Specialty Start Date End Date Renea Hatch CNM [address] [place] [id number] PCP - General 09/30/13 documented as of this encounter
--- OUTSIDE RECORDS SUMMARY | 2025-01-06 11:36 | XMS_ITS | Clinical Summary ---
[facility] [address] [facility] [place] [address] Care Team Providers Care Watch Dial Maker Name Role Phone Unavailable Primary Care Provider [...] Advance Directive 2022 Covid-19 Vaccine (1 - 2023- season) 2024 Influenza (Flu) vaccine (1 o f 1 - Influenza standard series) 01/10/2025 [place]
--- OUTSIDE RECORDS SUMMARY | 2025-01-06 11:36 | XMS_ITS | Patient Health Record ---
Author Organization [facility] [place] [address] Care Team Providers Care Billboard Poster Name Role Phone Out of Area, Provider Primary Care Provider UnaYaz Bond Unavailable [phone] Reason For Referral No Information Encounters Encounter Location Date Provider Diagnosis [facility] [address] [place] [address] 01/19/2024 Yaz Gordon Postprocedural state Z98.890 Assessments Encounter Date Diagnosis (ICD Code) Assessment [...] End Date PATRICIA HOLM [address] [place] [address] [id number] MANI DAIGLE Self - patient is the insured
--- OUTSIDE RECORDS SUMMARY | 2025-01-06 11:36 | XMS_ITS | Clinical Summary ---
Author Organization [facility] Address [address] [place] [id number] Care Team Providers Care Lay Out Former Name Role Phone Pcp, No Primary Care [...] season) 2024 Influenza Vaccine 12/10/2024 Care Teams Lay Out Former Relationship Specialty Start Date End Date Pcp, No [address] [place] [address] PCP - General 05/17/22
== END 2025-01-06 10:45 | disposition home or self-care (01) ==
LOC: HO.PMC 10:18
PROVIDERS: Visit Provider Nurse Practitioner Family
DX: M62.830 Muscle spasm of back (principal); M47.816 Spondylosis without myelopathy or radiculopathy, lumbar region; M53.3 Sacrococcygeal disorders, not elsewhere classified; M79.7 Fibromyalgia; G57.01 Lesion of sciatic nerve, right lower limb
CPT/HCPCS: 99214

== ENCOUNTER 2025-03-18 15:20 | Outpatient (AMB) | payer BC, MEDICAID, SELFPAY ==
--- NOTE | 2025-03-18 15:24 | A.OFFVIS_ITS ---
Vital Signs 3 03/18/25 15:27 Height 5 ft 2 in Weight 120 lb BMI 21.9 BP 166/76 H Blood Pressure Location Lt brachial Position Sitting Pulse 84 Pulse Source Pulse Oximeter Pulse Oximetry (%) 100 Oxygen Delivery Method Room Air Intake Visit Reasons: Right SIJ pain increasing Intake Note: Pain today 2/10 Fish Header Required: No Accompanied by: Self / Same As Patient Allergies No Known Allergies Allergy (Verified 03/18/25 15:28) HPI Comments Details: The patient is a 60-year-old female presenting with increased pain in the right sacroiliac joint and lower back pain. She has a history of chronic pain, specifically chronic sacroiliac joint pain on the right side and fibromyalgia. The patient received a therapeutic steroid injection in the right sacroiliac joint on December 23, 2024, which provided significant pain relief. The patient reports that her pain has been fluctuating, with a recent flare occurring about three weeks ago, which has since improved. She associates her pain fluctuations with fibromyalgia and notes that stress and a possible injury have exacerbated her symptoms over the past six months. The patient has been on duloxetine (Cymbalta) for fibromyalgia management, which she resumed after a flare several years ago. The patient has a history of degenerative disc disease and arthritis, which may contribute to her pain. She completed physical therapy in October or November, which focused on the sacroiliac joint and piriformis muscle areas. Her pain level today is low, rated at 2 out of 10, but has reached as high as 7 out of 10 in the past two weeks during spasms. Denies any recent cough, cold, infection, fever or any significant changes in medical history since last office visit. PRIOR: The patient is a 59-year-old female presenting with chronic pain and fibromyalgia symptoms. She reports a history of chronic pain that began years ago following an injury, which has now resurfaced and is associated with anxiety. The pain is primarily located in the back and moves around, with a history of fibromyalgia that had previously resolved for six to seven years. The patient underwent a right sacroiliac joint injection with steroids on December 23, 2024, which provided therapeutic relief. However, she continues to experience pain in the right buttock, especially during exercise, with a pain level reaching up to 5-7/10. She describes the pain as spasms in the middle of the buttock, which improve with rest. The patient has a history of mild disc degeneration and mild arthritis in the lower back, as confirmed by MRI imaging. She reports no spinal stenosis and has been informed that the discs are only slightly degenerated, which is considered normal for her age. The patient has been diagnosed with anxiety, which she associates with family- related stressors rather than public or situational anxiety. She has been managing her anxiety with counseling and has started on a low dose of duloxetine (Cymbalta) for fibromyalgia and anxiety management. She has a history of using gabapentin in the past for similar symptoms. - Onset: Chronic pain following an injury years ago, recently resurfaced. - Quality: Described as spasms, primarily in the middle of the back and right buttock. - Location: Back, with radiation to the right buttock. - Exacerbating factors: Exercise increases pain, especially in the right buttock. - Relieving factors: Rest alleviates the pain. - Interference: Pain limits walking distance and physical activity. - Affect: Anxiety related to family stressors impacts mood. - Analgesia: Current pain level is 2 out of 10 at rest, 5-7/10 with activities, with a goal to manage pain effectively. - Adverse Effects: No adverse effects from current medications reported. - Activities of Daily Living: Pain limits walking and physical activity. - Aberrant Drug Related Behaviors: No aberrant behaviors reported. Past Procedures: 12/23/24:Right therapeutic SI joint injection-70% pain relief, ongoing PRIOR: The patient is a 59-year-old female presenting with chronic low back pain. The pain has persisted for over three months, worsening with walking or standing, and may have been triggered by a yoga-related incident. She has been under the care of Dr. Duran, receiving a piriformis injection and engaging in physical therapy at [facility] in [place] for lower back and and right hip. The pain extends to the right lateral leg, occasionally causing nerve pain and muscle spasms, and is somewhat alleviated by biking and rollerblading, though walking remains problematic. A lumbar x-ray indicated mild arthritis in the facet joints, with tenderness noted at L4-L5 and the sacroiliac joints. The patient denies bowel or bladder dysfunction and uses ibuprofen BID-TID prn daily for pain relief. She has a history of fibromyalgia-like symptoms following a period of significant stress and family loss, leading to muscle spasms and back tightness. Currently, she is considering transitioning from cyclobenzaprine to tizanidine to better manage her symptoms. Patient is currently receiving counseling for depression and reports Wellbutrin and duloxetine have been partially helpful. - Onset: Over three months ago, possibly related to yoga. - Quality: Chronic, with nerve pain, pinching, cramping, crushing, dull, sore, hurting, aching, heavy, spasming, tiring. - Location: Low back, radiating to the hip and lateral leg. - Exacerbating factors: Walking, standing, increased pain after a lot of activity - Relieving factors: Biking, rollerblading. - Interference: Affects walking and standing activities. - Pain (1-10): With activities 7/10, average 5/10, early am upon waking up 10 - Affect: Pain impacts daily activities and causes frustration due to activity limitations. - Analgesia: Currently using ibuprofen three times daily; considering tizanidine for muscle relaxation. - Adverse Effects: Potential drowsiness from tizanidine, advised to monitor blood pressure. - Activities of Daily Living: Pain affects walking and standing; patient remains active with biking and rollerblading. - Aberrant Drug Related Behaviors: None reported. 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 Alert and oriented. Mood and affect appropriate. Follows and participates in conversation appropriately. Respiratory effort is unlabored. No cough. Able to transition from sit to stand unassisted. Ambulates with bilaterally normal heel strike and toe off. Back/Spine/Pelvis Other: Patient is able to walk and stand on heels and tip toes with no difficulties demonstrating good motor tone. Normal gait, no limping. Lumbar flexion and extension reproduces mild pain. Demonstrates 5/5 strength of quadriceps bilaterally as well as flexion/dorsiflexion of bilateral feet against resistance. 2+ pedal pulses bilaterally. Straight leg rise with dorsiflexion negative bilaterally. +2 patellar and achilles reflexes bilaterally. Facet loading test positive bilaterally. No groin pain with right I/E hip rotations. Valsalva maneuver is negative. Mild multiple widespread TTPs 16/16 bilaterally, including upper and lower extremities.?? Cervical Spine: cervical ROM normal, cervical muscular tenderness and No Cervical spine tenderness Thoracic/Lumbar Spine: thoracic and lumbar spine normal to inspection, No Thoracic/lumbar spine scar(s), Lasegue's sign negative, straight leg raise negative bilaterally, pain with thoraco-lumbar ROM, paraspinal muscle tenderness on the right greater than left, No thoracic spinal tenderness and lumbar spinal tenderness at L4 and at L5 Pelvis: buttock tenderness on the right Sacroiliac joints: bilaterally tender to palpation (mild) Results Reviewed Results Reviewed: Ordering Physician: DO Avery Skaggs Date of Service: 10/20/24 Procedure(s): XR lumbar spine 2-3V Reason for Exam: right sided sciatica HISTORY: right sided sciatica -written- TECHNIQUE: 3 views of the lumbar spine were acquired. COMPARISON: None. FINDINGS: Vertebrae: There are 5 non rib-bearing vertebral bodies. There is normal mineralization, alignment and stature with no evidence of a fracture. Disc Spaces: Disc space height is preserved. Facet Joints: Mild sclerosis of the lower lumbar facet joints. Paravertebral Tissues: No acute abnormality. IMPRESSION: Mild lower lumbar facet arthrosis. 12/23/24 Lumbar spine MRI w/o IV contrast Assessment & Plan Assessment & Plan (1) Fibromyalgia: Code(s): M79.7 - Fibromyalgia Category: Medical (2) Lumbar spondylosis: Code(s): M47.816 - Spondylosis without myelopathy or radiculopathy, lumbar region Category: Medical (3) Sacroiliac joint pain: Code(s): M53.3 - Sacrococcygeal disorders, not elsewhere classified Category: Medical (4) Muscle spasm of back: Code(s): M62.830 - Muscle spasm of back Category: Medical Plan The plan includes initiating physical therapy focused on the lower back and sacroiliac joint areas to improve mobility and reduce pain and stiffness. If physical therapy does not provide sufficient relief, the patient may consider returning for further interventions such as repeat sacroiliac joint injections or diagnostic lumbar medial branch blocks for potential Sprint PNS trial vs radiofrequency ablation. The patient is advised to continue with her current medication regimen, including duloxetine, and to maintain an active lifestyle to manage her symptoms effectively. Additional recommendations include avoiding ultra-processed foods and sweets and considering supplements such as turmeric and edie supplements, magnesium, zinc, and ALA for their anti-inflammatory properties. All questions and concerns have been answered and patient agreed with the treatment plan. Follow up after PT and sooner as needed. Patient was informed and verbally consented to the use of an ambient scribe for clinic note documentation during this visit. Orders: Orders 2 PT Evaluation and Treatment Today M47.816 - Spondylosis without myelopathy or radiculopathy, lumbar region, M53.3 - Sacrococcygeal disorders, not elsewhere classified, M79.7 - Fibromyalgia Coding Level of Care Code Est Pt Level 4 (34611) Complex EM visit Add On G2211 Diagnoses Fibromyalgia M79.7 Lumbar spondylosis M47.816 Sacroiliac joint pain M53.3 Muscle spasm of back M62.830
[2025-03-18 15:27] VITALS: BP 166/76; PULSE 84; O2SAT 100; BMI 21.9
--- OUTSIDE RECORDS SUMMARY | 2025-03-18 16:32 | XMS_ITS | Clinical Summary ---
Author Organization [facility] Address [address] [place] [address] Care Team Providers Care Straddle Truck Driver Name Role Phone Renea Hatch [facility] Primary Care Provider Unav ailable Encounters Date Type Department Care Team Description 12/22/2024 Lab Requisition [facility] Pathology & Laboratory Medicine - [facility] [address] [place], [place] [id number] Outr Resulting Lab, Provider from Last 3 [...] Lyme Ab Negative Negative 12/23/2024 10:11 EDT [facility] Blood VENOUS BLOOD / Unknown 12/22/2024 13:59 EDT 12/22/2024 20:57 EDT us Provider Outr Resulting Lab IMMUNOLOGY AND SEROL OGY ORDERABLES Final Result [facility] [address] [place] [address] from Last 3 Months Care Teams Straddle Truck Driver Relationship Specialty Start Date End Date Renea Hatch CNM [address] [place] [phone] PCP - General 09/30/13
--- OUTSIDE RECORDS SUMMARY | 2025-03-18 16:32 | XMS_ITS | Encounter Summary ---
Author Organization [facility] Address [address] [place] [address] Care Team Providers Care Software Development Project Manager Name Role Phone Renea Hatch [facility] Primary Care Provider Unav ailable Encounter Details Date Type Department Care Team (Late st Contact Info) Description 03/07/2020 Lab Requisition [facility] Pathology & Laboratory Medicine - [facility] [address] [place] [address] Outr Resulting Lab, Provider Social History Tobacco [...] rt-PCR Result NEGATIVE Negative 03/08/2020 17:27 EDT [facility] Comment: 2019-novel Coronavirus (2019-nCoV) [...] in accordance with CLIA regulations, [employer] (CAP) guidelines (Jul 29, 2019), and FDA guidance (Jul 10, 2019). This test is only for use under the Food and Drug Administration's Emergency Use Authorization. Swab ENTIRE NASOPHARYNX / Unknown 03/07/2020 11:15 EDT 03/07/2020 22:00 EDT us Provider Outr Resulting Lab MICROBIOLOGY - GENER AL ORDERABLES Edited Result - Final [facility] [place], [place] * COVID-19 TESTING (03/07/2020 11:15 EDT) COVID-19 rt-PCR Result NEGATIVE Negative 04/01/2020 18:28 EST [facility] Comment: 2019-novel Coronavirus (2019-nCoV) not detected [...] in accordance with CLIA regulations, [employer] (CAP) guidelines (Jul 29, 2019), and FDA guidance (Jul 10, 2019). This test is only for use under the Food and Drug Administration's Emergency Use Authorization. Performing Lab [facility] 04/01/2020 18:28 EST [facility] Swab 03/07/2020 11:1 5 EDT 03/07/2020 22:00 EDT us Provider Outr Resulting Lab MICROBIOLOGY - GENER AL ORDERABLES Final Result [facility] [address] [place] [address] [facility] [place], [place] documented in this encounter Visit Diagnoses Not on filedocumented in this encounter Care Teams Software Development Project Manager Relationship Specialty Start Date End Date Renea Hatch CNM [address] [place] [phone] PCP - General 09/30/13 documented as of this encounter
--- OUTSIDE RECORDS SUMMARY | 2025-03-18 16:33 | XMS_ITS | Encounter Summary ---
Author Organization [facility] Address [address] [place] [address] Care Team Providers Care Global Sales Director Name Role Phone Renea Hatch El [facility] Primary Care Provider Unav ailable Encounter Details Date Type Department Care Team (Late st Contact Info) Description 12/22/2024 Lab Requisition [facility] Pathology & Laboratory Medicine - [facility] [address], [place] [id number] Outr Resulting Lab, Provider Social History Tobacco [...] Lyme Ab Negative Negative 12/23/2024 10:11 EDT [facility] Blood VENOUS BLOOD / Unknown 12/22/2024 13:59 EDT 12/22/2024 20:57 EDT us Provider Outr Resulting Lab IMMUNOLOGY AND SEROL OGY ORDERABLES Final Result [facility] [address], [place] [id number] documented in this encounter Visit Diagnoses Not on filedocumented in this encounter Care Teams Global Sales Director Relationship Specialty Start Date End Date Renea Hatch CNM [address] [place] [phone] PCP - General 09/30/13 documented as of this encounter
--- OUTSIDE RECORDS SUMMARY | 2025-03-18 16:33 | XMS_ITS | Encounter Summary ---
Author Organization [facility] Address [address] [place] [address] Care Team Providers Care Information Systems Security Manager Name Role Phone Renea Hatch [facility] Primary Care Provider Unav ailable Encounter Details Date Type Department Care Team (Late st Contact Info) Description 08/23/2019 Lab Requisition [facility] Pathology & Laboratory Medicine - [facility] [address] [place] [address] Flakita Landin MD [address] [place] [phone] Encounter for other general examination Social [...] EDT) COVID-19 Result Negative 0 8:22 EDT [facility] Comment:Assayed by [facility], [place], [place] Swab ENTIRE NASOPHARYNX / Unknown 08/23/2019 10:52 EDT 08/23/2019 21:09 EDT us Flakita Landin MD MICROBIOLOGY - GENERAL ORD ERABLES Final Result [facility] [address] [place] [address] documented in this encounter Visit Diagnoses Diagnosis Encounter for other general examination documented in this encounter Care Teams Information Systems Security Manager Relationship Specialty Start Date End Date Renea Hatch CNM [address] [place] [phone] PCP - General 09/30/13 documented as of this encounter
--- OUTSIDE RECORDS SUMMARY | 2025-03-18 16:33 | XMS_ITS | Clinical Summary ---
Author Organization [facility] Address [address] [place] [id number] Care Team Providers Care Rocket Motor Mechanic Name Role Phone Pcp, No Primary Care [...] Zoster (Shingles) Vaccine (1 of 2) 2017 Influenza Vaccine 12/10/2024 COVID-19 Vaccine ( - season) 2025 RSV Vaccine 50 years and old er and Patients (1 - 1-dose 75+ series) 2042 Care Teams Rocket Motor Mechanic Relationship Specialty Start Date End Date Pcp, No [address] [place] [address] PCP - General 05/17/22
--- OUTSIDE RECORDS SUMMARY | 2025-03-18 16:33 | XMS_ITS | Clinical Summary ---
Author Organization [facility] Address [address] [facility] [place] [address] Care Team Providers Care Mechanical Systems Design Engineer Name Role Phone Unavailable Primary Care Provider [...] Directive 2022 Covid-19 Vaccine (1 - season) 2025 Influenza (Flu) vaccine (1 o f 1 - Influenza standard series) 01/10/2025 Insurance [place]
== END 2025-03-18 15:39 | disposition home or self-care (01) ==
LOC: HO.PMC 15:20
PROVIDERS: Visit Provider Nurse Practitioner Family
DX: M79.7 Fibromyalgia (principal); M47.816 Spondylosis without myelopathy or radiculopathy, lumbar region; M53.3 Sacrococcygeal disorders, not elsewhere classified; M62.830 Muscle spasm of back
CPT/HCPCS: 99214